=== PATIENT | male | born 1960 | race Caucasian/White ===

== ENCOUNTER 2019-04-19 07:22 | Emergency (ER) | payer BC, OTHER ==
[2019-04-19 07:36] VITALS: BP 127/76
--- NOTE | 2019-04-19 11:55 | UC ---
Skin Complaint HPI - HPI Summary HPI Summary: PATIENT REMOVED A TICK FROM HIS LEFT POSTERIOR THIGH THIS MORNING. THINKS IT LIKELY ATTACHED A COUPLE OF DAYS AGO WHEN HE WAS OUT IN THE HAND. NO FEVER, HEADACHE, BODY ACHES. HAS A SMALL RED DAVEY AT THE SITE OF THE TICK ATTACHMENT. - History of Current Complaint Chief Complaint: [facility]CS[facility] Time Seen by Provider: 04/19/19 08:01 Stated Complaint: TICK BITE Hx Obtained From: Patient Skin Exposure Onset/Duration: Days Ago Timing: Constant Onset Severity: Mild Current Severity: Mild Pain Intensity: 3 Pain Scale Used: 0-10 Numeric Character: Redness Aggravating Factor(s): Touch Alleviating Factor(s): Nothing Associated Signs & Symptoms: Positive: Negative Related History: Insect Bite/Sting - Allergy/Home Medications Allergies/Adverse Reactions: Allergies Allergy/AdvReac Type Severity Reaction Status Date / Time No Known Allergies Allergy Verified 04/19/19 07:35 Home Medications: Home Medications Naproxen Sodium [Aleve] 220 mg PO 04/19/19 [History] Sertraline* [Zoloft*] 50 mg PO BEDTIME 04/19/19 [History Confirmed 04/19/19] Simvastatin TAB(NF) [Zocor 20 MG (NF)] 20 mg PO 1700 04/19/19 [History Confirmed 04/19/19] buPROPion TAB* [Wellbutrin TAB*] 75 mg PO BID 04/19/19 [History Confirmed ] PMH/Surg Hx/FS Hx/Imm Hx Endocrine History: Dyslipidemia - Surgical History Surgical History: Yes Surgery Procedure, Year, and Place: 2009 UMBILICAL HERNIA- [facility], nasal surgery, toe surgery - Family History Known Family History: Positive: Non-Contributory - Social History Alcohol Use: None Substance Use Type: None Smoking Status (MU): Never Smoked Tobacco Review of Systems All Other Systems Reviewed And Are Negative: Yes Constitutional: Positive: Negative Skin: Positive: Other - TICK ATTACHMENT SITE LEFT POSTERIOR THIGH Respiratory: Positive: Negative Cardiovascular: Positive: Negative Gastrointestinal: Positive: Negative Musculoskeletal: Positive: Negative Neurological: Positive: Negative Physical Exam Triage Information Reviewed: Yes Appearance: Well-Appearing, No Pain Distress, Well-Nourished Vital Signs: Initial Vital Signs Temp 98.3 F 04/19/19 07:32 Pulse 63 04/19/19 07:32 Resp 18 04/19/19 07:32 BP 127/76 04/19/19 07:32 Pulse Ox 100 04/19/19 07:32 Vital Signs Reviewed: Yes Eyes: Positive: Conjunctiva Clear ENT: Positive: Hearing grossly normal Neck: Positive: Supple Respiratory: Positive: No respiratory distress, No accessory muscle use Cardiovascular: Positive: Pulses Normal Abdomen Description: Positive: Soft Musculoskeletal: Positive: No Edema Neurological: Positive: Alert Psychological: Positive: Age Appropriate Behavior Skin: Positive: Other - LEFT POSTERIOR THIGH 2.5CM AREA OF ERYTHEMA WITH CENTRALLY LOCATED DARKER SPOT WHERE TICK WAS ATTACHED. MILDLY TENDER Course/Dx - Course Course Of Treatment: TICK LIKELY ATTACHED FOR OVER 24 HOURS. WILL GO AHEAD AND GIVE PROPHYLACTIC DOSE OF DOXYCYCLINE. COUNSELED ON SIGNS AND SYMPTOMS OF LYME DISEASE TO BE VIGILANT FOR. FOLLOW-UP IF NEEDED. - Diagnoses Provider Diagnosis: Tick bite Discharge ED - Sign-Out/Discharge Documenting (check all that apply): Patient Departure All imaging exams completed and their final reports reviewed: No Studies - Discharge Plan Condition: Stable Disposition: HOME Prescriptions: Doxycycline Monohydrate 2 cap PO ONCE #2 cap Patient Education Materials: Tick Bite (ED) Referrals: Tej Stock MD [Primary Care Provider] - If Needed Additional Instructions: TICK BITE PROPHYLAXIS You received a prescription for 200mg of doxycycline for prophylaxis against Lyme disease. The Infectious Disease Society of [place] (IDSA) does not generally recommend antimicrobial prophylaxis for prevention of Lyme disease after a recognized tick bite. However, in areas that are highly endemic for Lyme disease, a single dose of doxycycline may be offered to adult patients (200 mg) who are not and to children older than 8 years of age (4 mg/kg up to a maximum dose of 200 mg) when all of the following circumstances exist: CRITERIA FOR RECEIVING PROPHYLACTIC TREATMENT FOR LYME DISEASE 1) TICK ATTACHED FOR AT LEAST 36 HRS 2) TICK IS AN ADULT OR [place] DEER TICK 3) YOU LIVE IN AN AREA WHERE LYME DISEASE IS PREVALENT (i.e., [place], [place], [place], , [place] , [place], [place], [place], [place], [place], [place], [place], [place], [place]) 4) YOU HAVE NO CONTRAINDICATION TO THE MEDICATION (DOXYCYCLINE) 5) PROPHYLAXIS IS BEGUN WITHIN 72 HRS OF TICK REMOVAL YOUR CHANCES OF DEVELOPING LYME DISEASE FROM THIS TICK ARE EXTREMELY SMALL. HOWEVER, 1 TICK MEANS THERE MAY HAVE BEEN OTHER TICKS OF WHICH YOU WEREN'T AWARE. SO BE VIGILANT OF YOUR SYMPTOMS AND DON'T HESITATE TO GET SEEN AGAIN IF YOU DEVELOP UNEXPLAINED FEVER, HEADACHE, JOINT PAIN, BODY ACHES, RASH OR ANY OTHER CONCERNING SYMPTOMS. - Billing Disposition and Condition Condition: STABLE Disposition: Home
== END 2019-04-19 08:26 | disposition home or self-care (01) ==
LOC: UCEAST 07:22
DX: S70.362A Insect bite (nonvenomous), left thigh, initial encounter (principal); W57.XXXA Bitten or stung by nonvenomous insect and other nonvenomous arthropods, initial encounter; Y92.9 Unspecified place or not applicable; E78.5 Hyperlipidemia, unspecified
CPT/HCPCS: 99212; G0463